=== PATIENT | male | born 1995 | race Caucasian/White ===

== ENCOUNTER 2016-05-19 21:25 | Emergency (ER) | payer MEDICAID ==
[2016-05-19 21:37] VITALS: BP 116/64
[2016-05-19] MEDS ORDERED: Ibuprofen 800 MG Tab PO ONE (21:45)
[2016-05-19] MEDS ORDERED: Amoxicillin 500 MG Cap PO ONE (22:33)
--- NOTE | 2016-05-19 22:38 | EDM.PDOC ---
ED HPI ENT - General Chief Complaint: ENT Problem Stated Complaint: cold [id number] Time Seen by Provider: 05/19/16 22:34 Source of Information: Reports: Patient History Limitations: Reports: No limitations - History of Present Illness INITIAL COMMENTS - FREE TEXT/NARRATIVE: c/o sore throat was supposed to have it out but missed it. - Related Data Allergies/ADRs: Allergies Allergy/AdvReac Type Severity Reaction Status Date / Time No Known Allergies Allergy Verified 05/19/16 21:37 Home Meds: Home Meds Acetaminophen [Tylenol] 650 mg PO Q4H PRN 05/19/16 [History] Past Medical History HEENT History: Reports: Impaired vision - Past Surgical History HEENT Surgical History: Reports: Eye surgery Musculoskeletal Surgical History: Reports: Other (see below) Other Musculoskeletal Surgeries/Procedures:: left wrist surgery and left ring finger Social & Family History - Family History Family Medical History: Noncontributory - Tobacco Use Smoking Status *Q: Current Every Day Smoker Years of Tobacco use: 2 Packs/Tins Daily: 0.7 Second Hand Smoke Exposure: Yes - Caffeine Use Caffeine Use: Reports: Soda - Recreational Drug Use Recreational Drug Use: No ED ROS ENT - Review of Systems Review Of Systems: ROS reveals no pertinent complaints other than HPI. ED EXAM, ENT - Physical Exam Exam: See Below Exam Limited By: No limitations General Appearance: alert, WD/WN, mild distress, other (sore throat) Ears: hearing grossly normal Mouth/Throat: Pharyngeal erythema, Tonsillar erythema, Tonsillar swelling Head: atraumatic Neck: non-tender, full range of motion Respiratory/Chest: no respiratory distress Cardiovascular: regular rate, rhythm GI/Abdominal: soft, non tender Neurological: alert, oriented, normal cognition, normal gait, no motor/sensory deficits Psychiatric: flat affect Skin: Warm, Dry Lymphatic: no adenopathy Course - Vital Signs Last Recorded V/S: Last Vital Signs Temp 37.4 C 05/19/16 22:29 Pulse 120 H 05/19/16 21:33 Resp 18 05/19/16 21:33 BP 116/64 05/19/16 21:33 Pulse Ox 97 05/19/16 21:33 - Orders/Labs/Meds Orders: Active Orders 24 hr Category Date Time Status CULTURE STREP A CONFIRMATION [RM] Stat Lab 05/19/16 21:43 Results STREP SCRN A RAPID W CULT CONF [RM] Stat Lab 05/19/16 21:43 Results Amoxicillin [Amoxil] Med 05/19/16 22:33 Once 500 mg PO ONETIME ONE Meds: Medications Discontinued Medications Generic Name Dose Route Start Last Admin Trade Name Kenton PRN Reason Stop Dose Admin Ibuprofen 800 mg 05/19/16 21:45 05/19/16 21:47 Motrin PO 05/19/16 21:46 800 mg ONETIME ONE Administration Departure - Departure Time of Disposition: 22:36 Disposition: Home, Self-Care 01 Condition: good Clinical Impression: Tonsillitis Pharyngitis Qualifiers: Pharyngitis/tonsillitis etiology: other specified organisms Qualified Code(s): J02.8 - Acute pharyngitis due to other specified organisms Instructions: Tonsillitis, Biif-aa-[id number] Forms: ED Department Discharge Additional Instructions: 1) avoid solid foods and scratchy foods 2) have popsicle, jello, juice, baby foods 3) follow up at clinic for reschedule tonsillectomy rx given: amoxil 250mg tid x 1 week - My Orders Last 24 Hours: My Active Orders 05/19/16 21:43 CULTURE STREP A CONFIRMATION [RM] Stat STREP SCRN A RAPID W CULT CONF [RM] Stat 05/19/16 22:33 Amoxicillin [Amoxil] 500 mg PO ONETIME ONE - Assessment/Plan Last 24 Hours: My Active Orders 05/19/16 21:43 CULTURE STREP A CONFIRMATION [RM] Stat STREP SCRN A RAPID W CULT CONF [RM] Stat 05/19/16 22:33 Amoxicillin [Amoxil] 500 mg PO ONETIME ONE
== END 2016-05-19 22:41 | disposition home or self-care (01) ==
LOC: DL.ED 21:25
DX: J03.90 Acute tonsillitis, unspecified (principal); F17.210 Nicotine dependence, cigarettes, uncomplicated
CPT/HCPCS: 87081; 87430; 99283; A9270

== ENCOUNTER 2016-08-15 23:17 | Emergency (ER) | payer MEDICAID ==
[2016-08-15 23:23] VITALS: BP 121/74
--- NOTE | 2016-08-15 23:42 | EDM.PDOC ---
ED HPI GENERAL MEDICAL PROBLEM - General Chief Complaint: ENT Problem Stated Complaint: THROAT PAIN Time Seen by Provider: 08/15/16 23:37 Source of Information: Reports: Patient History Limitations: Reports: No Limitations - History of Present Illness INITIAL COMMENTS - FREE TEXT/NARRATIVE: C/O severe sore throat for 2- 3 days, difficult to swallow. No known fever, tylenol and ibuprofen not helping Duration: Day(s): Quality: Reports: Ache, Burning, Same as Previous Episode, Stabbing Throat Pain Score (Numeric/FACES): 8 - Related Data Allergies Allergy/AdvReac Type Severity Reaction Status Date / Time No Known Allergies Allergy Verified 08/15/16 23:27 Home Meds: Home Meds . [No Known Home Meds] 08/15/16 [History] Past Medical History HEENT History: Reports: Impaired Vision - Past Surgical History HEENT Surgical History: Reports: Eye Surgery Musculoskeletal Surgical History: Reports: Other (See Below) Other Musculoskeletal Surgeries/Procedures:: wrist surgery Social & Family History - Family History Family Medical History: Noncontributory - Tobacco Use Smoking Status *Q: Current Every Day Smoker Years of Tobacco use: 2 Packs/Tins Daily: 0.7 Second Hand Smoke Exposure: Yes - Caffeine Use Caffeine Use: Reports: Soda - Recreational Drug Use Recreational Drug Use: No ED ROS ENT - Review of Systems Review Of Systems: See Below Constitutional: Reports: No Symptoms HEENT: Reports: Throat Pain, Vision Change (loss of vision to left eye), Other Respiratory: Reports: No Symptoms Cardiovascular: Reports: No Symptoms Endocrine: Reports: No Symptoms GI/Abdominal: Reports: No Symptoms : Reports: No Symptoms Musculoskeletal: Reports: No Symptoms Skin: Reports: No Symptoms Neurological: Reports: No Symptoms Psychiatric: Reports: No Symptoms ED EXAM, ENT - Physical Exam Exam: See Below Exam Limited By: No Limitations General Appearance: Alert, Mild Distress Eye Exam: Right Eye: Normal Inspection (left globe sunken , deviated laterally- chronic) Ears: Normal External Exam, Normal TMs Nose: Normal Inspection, Normal Mucousa Mouth/Throat: Muffled Voice, Pharyngeal Erythema, Tonsillar Erythema, Tonsillar Swelling, Uvular Edema. No: Tonsillar Exudates Head: Atraumatic, Normocephalic Neck: Lymphadenopathy (L), Lymphadenopathy (R) Respiratory/Chest: No Respiratory Distress, Lungs Clear, Normal Breath Sounds Cardiovascular: Normal Peripheral Pulses GI/Abdominal: Normal Bowel Sounds Back: Normal Inspection Extremities: Normal Inspection Neurological: Alert, Oriented Psychiatric: Normal Affect Skin: Warm, Dry, Intact Course - Vital Signs Last Recorded V/S: Last Vital Signs Temp 98.2 F 08/15/16 23:20 Pulse 70 08/15/16 23:20 Resp 18 08/15/16 23:20 BP 121/74 08/15/16 23:20 Pulse Ox 99 08/15/16 23:20 - Orders/Labs/Meds Orders: Active Orders 24 hr Category Date Time Status CULTURE STREP A CONFIRMATION [RM] Stat Lab 08/15/16 23:28 Results STREP SCRN A RAPID W CULT CONF [RM] Stat Lab 08/15/16 23:28 Results Departure - Departure Time of Disposition: 23:55 Disposition: Home, Self-Care 01 Condition: Good Clinical Impression: Pharyngitis Qualifiers: Pharyngitis/tonsillitis etiology: other specified organisms Qualified Code(s): J02.8 - Acute pharyngitis due to other specified organisms - Discharge Information Referrals: PCP,None [Primary Care Provider] - Forms: ED Department Discharge Additional Instructions: salt water gargle alternate tylenol and ibuprofen for discomfort increase fluids z pack follow up if not improving in one week or sypmptoms worsen - My Orders Last 24 Hours: My Active Orders 08/15/16 23:28 CULTURE STREP A CONFIRMATION [RM] Stat STREP SCRN A RAPID W CULT CONF [RM] Stat - Assessment/Plan Last 24 Hours: My Active Orders 08/15/16 23:28 CULTURE STREP A CONFIRMATION [RM] Stat STREP SCRN A RAPID W CULT CONF [RM] Stat
== END 2016-08-15 23:54 | disposition home or self-care (01) ==
LOC: DL.ED 23:17
DX: J02.8 Acute pharyngitis due to other specified organisms (principal); F17.210 Nicotine dependence, cigarettes, uncomplicated; Z98.890 Other specified postprocedural states
CPT/HCPCS: 87081; 87430; 99283

== ENCOUNTER 2017-03-30 01:57 | Emergency (ER) | payer SELFPAY ==
[2017-03-30 02:03] VITALS: BP 112/70
[2017-03-30] MEDS ORDERED: Tetracaine HCl/PF 0.5% 4 ML Bottle EYERT ONE (02:11)
--- NOTE | 2017-03-30 02:30 | EDM.PDOC ---
ED HPI GENERAL MEDICAL PROBLEM - General Chief Complaint: Eye Problems Stated Complaint: PIECE OF METAL IN R EYE [id number] Time Seen by Provider: 03/30/17 02:15 Source of Information: Reports: Patient History Limitations: Reports: No Limitations - History of Present Illness INITIAL COMMENTS - FREE TEXT/NARRATIVE: This 21 yo male patient reports to the ED with a metal particle in his right eye due to grinding on a trailer at about 2100 last night. The patient reports he has continued to have pain in his right eye since the incident. Onset Date: 03/29/17 Onset Time: 21:00 Duration: Constant Location: Reports: Face (right eye) Quality: Reports: Ache, Sharp Severity: Moderate Improves with: Reports: None Worsens with: Reports: None Associated Symptoms: Reports: No Other Symptoms Right Eye Pain Score (Numeric/FACES): 4 - Related Data Allergies Allergy/AdvReac Type Severity Reaction Status Date / Time No Known Allergies Allergy Verified 08/15/16 23:27 Home Meds: Home Meds . [No Known Home Meds] 08/15/16 [History] Past Medical History HEENT History: Reports: Impaired Vision Musculoskeletal History: Reports: Back Pain, Chronic - Past Surgical History HEENT Surgical History: Reports: Eye Surgery Musculoskeletal Surgical History: Reports: Other (See Below) Other Musculoskeletal Surgeries/Procedures:: wrist surgery Social & Family History - Family History Family Medical History: Noncontributory - Tobacco Use Smoking Status *Q: Current Every Day Smoker Years of Tobacco use: 3 Packs/Tins Daily: 1 Second Hand Smoke Exposure: Yes - Caffeine Use Caffeine Use: Reports: Coffee, Soda - Recreational Drug Use Recreational Drug Use: No ED ROS GENERAL - Review of Systems Review Of Systems: ROS reveals no pertinent complaints other than HPI. ED EXAM GENERAL W FULL EYE - Physical Exam Exam: See Below Exam Limited By: No Limitations General Appearance: Alert, WD/WN, Mild Distress Eye Exam: Right Eye: Corneal Abrasion, Foreign Body, PERRL, Left Eye: Other ( surgically absent due to previous injury) Eyelids: Bilateral: Normal Appearance Conjunctiva & Sclera: Right: Foreign Body Cornea Exam: Right: Corneal Abrasion Extraocular Movements: Right: Intact Pupils: Normal Accommodation Pupillary Size: Right: 3 mm Pupillary Reaction: Right: Brisk Ears: Normal External Exam, Normal Canal, Hearing Grossly Normal, Normal TMs Nose: Normal Inspection, Normal Mucosa, No Blood Throat/Mouth: Normal Inspection, Normal Lips, Normal Teeth, Normal Gums, Normal Oropharynx, Normal Voice, No Airway Compromise Head: Atraumatic, Normocephalic Neck: Normal Inspection, Supple, Non-Tender, Full Range of Motion Respiratory/Chest: No Respiratory Distress, Lungs Clear, Normal Breath Sounds, No Accessory Muscle Use, Chest Non-Tender Cardiovascular: Normal Peripheral Pulses, Regular Rate, Rhythm, No Edema, No Gallop, No JVD, No Murmur, No Rub GI/Abdominal: Normal Bowel Sounds, Soft, Non-Tender, No Organomegaly, No Distention, No Abnormal Bruit, No Mass (Male) Exam: Deferred Rectal (Males) Exam: Deferred Back Exam: Normal Inspection, Full Range of Motion, NT Extremities: Normal Inspection, Normal Range of Motion, Non-Tender, Normal Capillary Refill, No Pedal Edema Neurological: Alert, Oriented, CN II-XII Intact, Normal Cognition, Normal Gait, Normal Reflexes, No Motor/Sensory Deficits Psychiatric: Normal Affect, Normal Mood Skin Exam: Warm, Dry, Intact, Normal Color, No Rash Lymphatic: No Adenopathy ED EYE w/ Add Procedure - Eye Procedure Alcaine Drops Administered: Yes Eye FB Removal: Removal w/ Cotton Swab Antibiotic Oinment/Drps Admin: Right Eye Progress: Foreign material removed easily with a cotton swab. The patient does have a corneal abrasion in addition to the foreign material removed. Course - Vital Signs Last Recorded V/S: Last Vital Signs Temp 36.6 C 03/30/17 02:02 Pulse 84 03/30/17 02:02 Resp 17 03/30/17 02:02 BP 112/70 03/30/17 02:02 Pulse Ox 99 03/30/17 02:02 - Orders/Labs/Meds Orders: Active Orders 24 hr Category Date Time Status Bacitracin/Polymyxin B [Polysporin Ophth Oint] Med 03/30/17 09:00 Ordered 1 gm EYERT TID Meds: Medications Discontinued Medications Generic Name Dose Route Start Last Admin Trade Name Freq PRN Reason Stop Dose Admin Tetracaine HCl 1 ml 03/30/17 02:11 03/30/17 02:15 Tetracaine 0.5% Steri-Unit Erlinda EYERT 03/30/17 02:12 1 ml ASDIRECTED ONE Administration Departure - Departure Time of Disposition: 02:29 Disposition: Home, Self-Care 01 Condition: Fair Clinical Impression: Corneal abrasion Qualifiers: Encounter type: initial encounter Laterality: right Qualified Code(s): S05.01XA - Injury of conjunctiva and corneal abrasion without foreign body, right eye, initial encounter Foreign body of right eye Qualifiers: Encounter type: initial encounter Qualified Code(s): T15.91XA - Foreign body on external eye, part unspecified, right eye, initial encounter - Discharge Information Instructions: Eye Foreign Body, Iush-sk-Lbeb, Corneal Abrasion, Biph-kt-Flea Care Plan Goals: The patient was advised of the examination results during the visit. The foreign material was removed without incident during the visit. The patient was discharged with antibiotic ointment to apply a 1/4 inch ribbon to the lower eyelid 4 times per day for 7 days. If the patient has any additional symptoms or further concerns, the patient should follow-up with his primary care facility or return to the ED. - Assessment/Plan Last 24 Hours: My Active Orders 03/30/17 09:00 Bacitracin/Polymyxin B [Polysporin Ophth Oint] 1 gm EYERT TID
[2017-03-30] MEDS ORDERED: Bacitracin/Polymyxin B Ophth Oint 3.5 GM Tube ONE (02:39)
[2017-03-30] MEDS ORDERED: Bacitracin/Polymyxin B Ophth Oint 3.5 GM Tube EYERT SCH (09:00)
== END 2017-03-30 02:45 | disposition home or self-care (01) ==
LOC: DL.ED 01:57
DX: T15.01XA Foreign body in cornea, right eye, initial encounter (principal); F17.210 Nicotine dependence, cigarettes, uncomplicated; X58.XXXA Exposure to other specified factors, initial encounter
CPT/HCPCS: 65205; 99282; 99283; A9270

== ENCOUNTER 2017-04-24 01:44 | Emergency (ER) | payer SELFPAY ==
[2017-04-24] MEDS ORDERED: Lidocaine 2% Viscous Solution 15 ML Cup PO ONE ×2 (01:45)
[2017-04-24] MEDS ORDERED: Clindamycin HCl 150 MG Cap PO ONE (01:45)
[2017-04-24 02:03] VITALS: BP 109/73
--- NOTE | 2017-04-24 02:48 | EDM.PDOC ---
ED HPI GENERAL MEDICAL PROBLEM - General Chief Complaint: ENT Problem Stated Complaint: BUMPS ON TONGUE, TOUGH TO EAT [id number] Time Seen by Provider: 04/24/17 01:50 Source of Information: Reports: Patient History Limitations: Reports: No Limitations - History of Present Illness INITIAL COMMENTS - FREE TEXT/NARRATIVE: ED with c/o sorethroat and cold for one week, tonight tongue sore and hurts to eat. - Related Data Allergies Allergy/AdvReac Type Severity Reaction Status Date / Time No Known Allergies Allergy Verified 08/15/16 23:27 Home Meds: Home Meds . [No Known Home Meds] 08/15/16 [History] Past Medical History HEENT History: Reports: Impaired Vision Musculoskeletal History: Reports: Back Pain, Chronic - Past Surgical History HEENT Surgical History: Reports: Eye Surgery Musculoskeletal Surgical History: Reports: Other (See Below) Other Musculoskeletal Surgeries/Procedures:: wrist surgery Social & Family History - Family History Family Medical History: Noncontributory - Tobacco Use Smoking Status *Q: Current Every Day Smoker Years of Tobacco use: 6 Packs/Tins Daily: 0.5 Second Hand Smoke Exposure: Yes - Caffeine Use Caffeine Use: Reports: Coffee, Soda - Recreational Drug Use Recreational Drug Use: No ED ROS ENT - Review of Systems Review Of Systems: See Below Constitutional: Reports: No Symptoms HEENT: Reports: Rhinitis, Throat Pain Respiratory: Reports: No Symptoms Cardiovascular: Reports: No Symptoms GI/Abdominal: Reports: No Symptoms Skin: Reports: No Symptoms ED EXAM, ENT - Physical Exam Exam: See Below Exam Limited By: Other General Appearance: No Apparent Distress, Mild Distress Eye Exam: Right Eye: EOMI (blind left eye) Ears: Normal External Exam, Normal TMs Nose: Nasal Discharge (clear) Mouth/Throat: Pharyngeal Erythema, Tonsillar Erythema, Tonsillar Swelling, Other (tongue beefy red few vesicular papules scattered) Head: Atraumatic, Normocephalic Neck: Normal Inspection, Supple, Full Range of Motion, Lymphadenopathy (L), Lymphadenopathy (R) Respiratory/Chest: No Respiratory Distress, Lungs Clear, Normal Breath Sounds Cardiovascular: Normal Peripheral Pulses, Regular Rate, Rhythm GI/Abdominal: Normal Bowel Sounds, Soft Extremities: Normal Inspection Neurological: Alert, Oriented, Normal Cognition Course - Vital Signs Last Recorded V/S: Last Vital Signs Temp 98.1 F 04/24/17 01:45 Pulse 96 04/24/17 01:45 Resp 18 04/24/17 01:45 BP 109/73 04/24/17 01:45 Pulse Ox 100 04/24/17 01:45 - Orders/Labs/Meds Orders: Active Orders 24 hr Category Date Time Status CULTURE STREP A CONFIRMATION [RM] Stat Lab 04/24/17 01:55 Results STREP SCRN A RAPID W CULT CONF [RM] Stat Lab 04/24/17 01:55 Results Meds: Medications Discontinued Medications Generic Name Dose Route Start Last Admin Trade Name Kenton PRN Reason Stop Dose Admin Amoxicillin 1,000 mg 04/24/17 02:44 04/24/17 02:49 Amoxil PO 04/24/17 02:45 1,000 mg ONETIME ONE Administration Lidocaine HCl Confirm 04/24/17 02:53 Xylocaine 2% Viscous Administered 04/24/17 02:54 Dose 15 ml .ROUTE .STK-MED ONE Departure - Departure Time of Disposition: 02:45 Disposition: Home, Self-Care 01 Condition: Good Clinical Impression: Tonsillitis - Discharge Information Referrals: PCP,None [Primary Care Provider] - Forms: ED Department Discharge Additional Instructions: good oral hygeine, moth rinse 14 strength mouthwash amoxicillin 875mg one twice daily for one week, thin layer viscous lidocaine to tongue prior to meals chloraseptic spray as needed. - My Orders Last 24 Hours: My Active Orders 04/24/17 01:55 CULTURE STREP A CONFIRMATION [RM] Stat STREP SCRN A RAPID W CULT CONF [RM] Stat - Assessment/Plan Last 24 Hours: My Active Orders 04/24/17 01:55 CULTURE STREP A CONFIRMATION [RM] Stat STREP SCRN A RAPID W CULT CONF [RM] Stat
[2017-04-24] MEDS: Amoxicillin 500 MG Cap PO ONE (02:49)
[2017-04-24] MEDS: Lidocaine 2% Viscous Solution 15 ML Cup ONE (04:54)
== END 2017-04-24 03:05 | disposition home or self-care (01) ==
LOC: DL.ED 01:44
DX: J03.90 Acute tonsillitis, unspecified (principal); F17.210 Nicotine dependence, cigarettes, uncomplicated
CPT/HCPCS: 87081; 87430; 99283; A9270

== ENCOUNTER 2017-06-11 23:54 | Emergency (ER) | payer MEDICAID ==
[2017-06-11] MEDS ORDERED: Acetaminophen/HYDROcodone 325-10 MG Tab PO ONE (23:55)
[2017-06-12] MEDS ORDERED: Silver Sulfadiazine 1% Crm 50 GM Tube TOP ONE (00:03)
[2017-06-12 00:11] VITALS: BP 118/75
--- NOTE | 2017-06-12 00:46 | EDM.PDOC ---
ED HPI GENERAL MEDICAL PROBLEM - General Chief Complaint: Burn Stated Complaint: BURNED HAND [id number] Time Seen by Provider: 06/12/17 00:10 Source of Information: Reports: Patient - History of Present Illness INITIAL COMMENTS - FREE TEXT/NARRATIVE: pouring grease out of cormier and spilled grease on right hand. burn to thumb and hand Left Hand Pain Score (Numeric/FACES): 7 - Related Data Allergies Allergy/AdvReac Type Severity Reaction Status Date / Time No Known Allergies Allergy Verified 06/12/17 00:11 Home Meds: Home Meds . 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 Musculoskeletal Surgical History: Reports: Other (See Below) Other Musculoskeletal Surgeries/Procedures:: wrist surgery Social & Family History - Family History Family Medical History: Noncontributory - Tobacco Use Smoking Status *Q: Current Every Day Smoker Years of Tobacco use: 3 Packs/Tins Daily: 0.5 Second Hand Smoke Exposure: Yes - Caffeine Use Caffeine Use: Reports: Energy Drinks, Soda - Recreational Drug Use Recreational Drug Use: No ED ROS GENERAL - Review of Systems Review Of Systems: ROS reveals no pertinent complaints other than HPI. ED EXAM, BURN/SMOKE INHALATION - Physical Exam Exam: See Below Exam Limited By: No Limitations General Appearance: Alert, Mild Distress Ears (Abbreviated): Normal External Exam Mouth/Throat: No Symptoms Reported. No: Hoarse Voice Head: No Symptoms Neck: No Symptoms Respiratory: No Respiratory Distress Cardiovascular: Normal Peripheral Pulses, Regular Rate, Rhythm GI/Abdominal: Normal Bowel Sounds Neurological: Alert, Oriented Skin Exam: Warm, Other (deep first degree mid index finger on right, to thenar and medial thumb. small 3mm circular sluffed blister. in web. ) Course - Vital Signs Last Recorded V/S: Last Vital Signs Temp 98 F 06/12/17 00:02 Pulse 77 06/12/17 00:02 Resp 16 06/12/17 00:02 BP 118/75 06/12/17 00:02 Pulse Ox 100 06/12/17 00:02 - Orders/Labs/Meds Meds: Medications Discontinued Medications Generic Name Dose Route Start Last Admin Trade Name Kenton PRN Reason Stop Dose Admin Hydrocodone Bitart/Acetaminophen Confirm 06/12/17 00:49 06/12/17 00:58 [place] 325-10 Mg Administered 06/12/17 00:50 Not Given Dose 2 tab .ROUTE .STK-MED ONE Silver Sulfadiazine 50 gm 06/12/17 00:03 06/12/17 00:30 Silvadene 1% Cream 50 Gm TOP 06/12/17 00:04 1 unit ONETIME ONE Administration Departure - Departure Time of Disposition: 00:43 Disposition: Home, Self-Care 01 Condition: Good Clinical Impression: Burn - Discharge Information Instructions: Burn Care, Adult, [id number] Forms: ED Department Discharge Additional Instructions: Silvadene to right hand, dress twice daily until healed Hydrocodone 10/325 one every 6 hours tonight as needed for severe pain alternate tylenol 650 and ibuprofen tomorrow for discomfort keep area clean follow up if any increased redness or sign of infection
[2017-06-12] MEDS ORDERED: Acetaminophen/HYDROcodone 325-10 MG Tab ONE (00:49)
== END 2017-06-12 00:57 | disposition home or self-care (01) ==
LOC: DL.ED 23:54
DX: T23.201A Burn of second degree of right hand, unspecified site, initial encounter (principal); T23.111A Burn of first degree of right thumb (nail), initial encounter; F17.210 Nicotine dependence, cigarettes, uncomplicated
CPT/HCPCS: 16020; 99283; A9270

== ENCOUNTER 2017-06-23 23:57 | Emergency (ER) | payer MEDICAID ==
[2017-06-24] MEDS ORDERED: Sodium Chloride 0.9% 10 ML Syringe FLUSH PRN (00:10)
[2017-06-24] MEDS ORDERED: Ondansetron 4 MG/2 ML SDV IV ONE (00:12)
[2017-06-24] MEDS ORDERED: Loperamide 2 MG Cap PO ONE (00:12)
[2017-06-24] MEDS ORDERED: Ketorolac 30 MG/ML SDV IVPUSH ONE (00:13)
[2017-06-24] MEDS ORDERED: Acetaminophen 325 MG Tab PO ONE (00:13)
[2017-06-24] MEDS: Sodium Chloride 0.9% 1,000 ML IV ONE ×2 (00:15→00:51)
[2017-06-24 00:44] LABS: CHLORIDE,CL 101 mmol/L (101-111); SODIUM,NA 135 mmol/L (135-145)
[2017-06-24] MEDS ORDERED: Sodium Chloride 0.9% 1,000 ML IV ONE (00:47)
[2017-06-24 01:32] VITALS: BP 102/50
--- NOTE | 2017-06-24 07:36 | ER ---
SUBJECTIVE: The patient is a 22-year-old, normally healthy male, who comes in with some midepigastric abdominal cramping, began yesterday and some nonbloody nausea and vomiting, also nonbloody diarrhea, happened for several days now. He states his girlfriend's sister has been staying with him, and she has had bronchitis and has been ill. He states he feels he has had fevers at times. He is not sure as he did not check it. Some chills. Occasional cough. No bites, stings, or rashes. No falls or trauma. Mild headache. No ear pain or sinus pain. Had a sore throat several days ago but nothing now. Otherwise, at baseline. He has been trying to eat and drink and has a decreased appetite. PAST MEDICAL HISTORY: Significant for impaired vision. 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 He has chronic back pain. He had wrist surgery. Otherwise, he has been healthy. SOCIAL HISTORY: He has been smoking cigarettes for the last 3 years. He does drink soda. He has not used alcohol for over 3 months. He does not use any recreational drugs. CURRENT MEDICATIONS: Denied. ALLERGIES: Denied. REVIEW OF SYSTEMS: Subjective fevers, chills, nonbloody nausea, vomiting, and diarrhea. No chest pain. No shortness of breath. Occasional cough. Sore throat 2 or 3 days ago, nothing now. No ear pain, sinus pain, or changes in vision recently. No bowel or bladder changes. He states he is urinating fine. No hematuria. Please see HPI. OBJECTIVE: Vital Signs: His temperature is 38.0 C, pulse is 120, blood pressure is 146/112, respirations 18, and oxygen is 98% on room air. General: Young male. HEENT: Normocephalic and atraumatic. 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 It is atrophic. Otherwise, conjunctiva is clear. HEENT exam is unremarkable. Mucous membrane is mildly dry. Neck: Full range of motion. No lymphadenopathy. No nuchal rigidity. Chest: Clear. Cardiovascular: RRR. Abdomen: Benign and soft. Back: No CVAT. Extremities: Unremarkable. He appears worn and tired. LAB/STUDIES: White count is mildly elevated, he has no anemia. Platelets are normal. Differential shows mildly elevated PMNs of 81.5. Sodium is normal. Potassium is barely low at 3.4. The remainder of electrolytes are quite unremarkable. Lactic acid is normal at 0.8. Total bilirubin is 1.1. Liver function tests and amylase are unremarkable. Chest x-ray is also unremarkable. His blood was sent for culture as well. EMERGENCY ROOM COURSE: He was given 2 L IV fluids. He was given Zofran IV. He was given Toradol IV and Tylenol by mouth. He was also given Imodium by mouth. He held everything orally by mouth and has done well and he felt much improved. I did discuss his labs and x-rays with him and advised him that it appears he has a viral process. ASSESSMENT: 1. Viral syndrome. 2. Nonbloody nausea, vomiting, and diarrhea. 3. Mild dehydration/volume depletion, intravenous fluids given. PLAN: Home, rest, plenty of sleep, symptomatic treatment, and Tylenol and ibuprofen [id number] per package recommendations. Keep aggressively hydrated. Love diet as tolerated. Use [id number] medications for diarrhea, such as Imodium. Follow up with PCP next week as needed. [facility] /[id number]
== END 2017-06-24 01:32 | disposition home or self-care (01) ==
LOC: DL.ED 23:57
DX: E86.0 Dehydration (principal); B34.9 Viral infection, unspecified; F17.210 Nicotine dependence, cigarettes, uncomplicated
CPT/HCPCS: 36415; 71046; 80053; 82150; 83605; 85025; 87040; 96361; 96374; 96375; 99284; A9270-GY; J1885; J2405; J7030; J7050

== ENCOUNTER 2018-07-01 23:46 | Emergency (ER) | payer MEDICAID ==
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
[2018-07-02 00:09] VITALS: BP 130/85
== END 2018-07-02 01:25 | disposition home or self-care (01) ==
LOC: DL.ED 23:46
DX: S60.221A Contusion of right hand, initial encounter (principal); W31.9XXA Contact with unspecified machinery, initial encounter
CPT/HCPCS: 73130-RT; 99283-25

== ENCOUNTER 2019-01-23 21:23 | Emergency (ER) | payer MEDICAID ==
[2019-01-23] MEDS ORDERED: Acetaminophen/HYDROcodone 325-10 MG Tab PO ONE (21:24)
[2019-01-23 21:46] VITALS: BP 109/75; PULSE 79
--- NOTE | 2019-01-23 21:47 | EDM.PDOC ---
ED HPI GENERAL MEDICAL PROBLEM - General Chief Complaint: Upper Extremity Injury/Pain Stated Complaint: RIGHT SHOULDER. Time Seen by Provider: 01/23/19 21:45 Source of Information: Reports: Patient History Limitations: Reports: No Limitations - History of Present Illness INITIAL COMMENTS - FREE TEXT/NARRATIVE: was loading dog food bags into truck this am and pulled something. Right Shoulder Pain Score (Numeric/FACES): 4 - Related Data Allergies Allergy/AdvReac Type Severity Reaction Status Date / Time No Known Allergies Allergy Verified 01/23/19 21:39 Home Meds: Home Meds . 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 Musculoskeletal Surgical History: Reports: Other (See Below) Other Musculoskeletal Surgeries/Procedures:: wrist surgery Social & Family History - Family History Family Medical History: Noncontributory - Tobacco Use Smoking Status *Q: Current Every Day Smoker Years of Tobacco use: 4 Packs/Tins Daily: 0.5 Used Tobacco, but Quit: No Second Hand Smoke Exposure: Yes - Caffeine Use Caffeine Use: Reports: Coffee, Energy Drinks, Soda, Tea - Recreational Drug Use Recreational Drug Use: No Review of Systems - Review of Systems Review Of Systems: Comprehensive ROS is negative, except as noted in HPI. ED EXAM, GENERAL - Physical Exam Exam: See Below Exam Limited By: No Limitations General Appearance: Alert, WD/WN, Mild Distress, Other (discomfort) Ears: Hearing Grossly Normal Throat/Mouth: Normal Voice, No Airway Compromise Head: Atraumatic Neck: Non-Tender, Full Range of Motion Respiratory/Chest: No Respiratory Distress Cardiovascular: Regular Rate, Rhythm GI/Abdominal: Soft, Non-Tender Extremities: Other (right shoulder tender rotator cuff region on R/P, NV wnl) Neurological: Alert, Oriented, Normal Cognition, Normal Gait, No Motor/Sensory Deficits Psychiatric: Flat Affect Skin Exam: Warm, Dry, Normal Color Lymphatic: No Adenopathy Course - Vital Signs Last Recorded V/S: Last Vital Signs Temp 36.9 C 01/23/19 21:45 Pulse 79 01/23/19 21:45 Resp 18 01/23/19 21:45 BP 109/75 01/23/19 21:45 Pulse Ox 100 01/23/19 21:45 - Re-Assessments/Exams Free Text/Narrative Re-Assessment/Exam: 01/23/19 22:35 results discussed with pt Departure - Departure Time of Disposition: 22:35 Disposition: Home, Self-Care 01 Condition: Good Clinical Impression: Rotator cuff (capsule) sprain Qualifiers: Encounter type: initial encounter Laterality: right Qualified Code(s): S43.421A - Sprain of right rotator cuff capsule, initial encounter - Discharge Information Forms: ED Department Discharge Additional Instructions: 1) avoid use of right shoulder next 4 days 2) see clinic for MRI SCAN if not significantly better by Saturday rx chaka paz 10 x 1
[2019-01-23] MEDS ORDERED: Acetaminophen/HYDROcodone 325-10 MG Tab ONE (22:45)
== END 2019-01-23 22:42 | disposition home or self-care (01) ==
LOC: DL.ED 21:23
DX: S43.421A Sprain of right rotator cuff capsule, initial encounter (principal); F17.210 Nicotine dependence, cigarettes, uncomplicated; X50.0XXA Overexertion from strenuous movement or load, initial encounter
CPT/HCPCS: 73020; 99283; A9270

== ENCOUNTER 2019-03-23 03:25 | Emergency (ER) | payer MEDICAID, OTHER ==
[2019-03-23 03:35] VITALS: BP 182/143; PULSE 72
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
[2019-03-23] MEDS ORDERED: Ibuprofen 600 MG Tab PO ONE (03:59)
== END 2019-03-23 04:12 | disposition home or self-care (01) ==
LOC: DL.ED 03:25
DX: S60.211A Contusion of right wrist, initial encounter (principal); F17.210 Nicotine dependence, cigarettes, uncomplicated; W22.8XXA Striking against or struck by other objects, initial encounter
CPT/HCPCS: 73110; 99283; A9270

== ENCOUNTER 2019-08-20 01:53 | Emergency (ER) | payer SELFPAY ==
[2019-08-20 02:04] VITALS: BP 173/62; PULSE 79
--- NOTE | 2019-08-20 02:16 | EDM.PDOC ---
ED HPI GENERAL MEDICAL PROBLEM - General Chief Complaint: Upper Extremity Injury/Pain Stated Complaint: SOMETHING OUT OF PLACE IN THROAT Time Seen by Provider: 08/20/19 02:05 Source of Information: Reports: Patient History Limitations: Reports: No Limitations - History of Present Illness INITIAL COMMENTS - FREE TEXT/NARRATIVE: This 24 yo male patient reports to the ED with right clavicle pain. The patient reports his pain started this evening, but has gotten worse. The patient has not taken anything for his symptoms. The patient reports that he has noticed that something sticks out (near to proximal end of his clavicle) when he moves. The patient denies any recent injuries to the area. 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 The patient has not taken anything for temporary symptom relief. Onset: Today Duration: Constant Location: Reports: Chest (right proximal clavicle) Quality: Reports: Ache, Dull Severity: Mild Improves with: Reports: Rest Worsens with: Reports: Movement Context: Reports: Activity Associated Symptoms: Reports: No Other Symptoms Right Clavicle Pain Score (Numeric/FACES): 9 - Related Data Allergies Allergy/AdvReac Type Severity Reaction Status Date / Time No Known Allergies Allergy Verified 08/20/19 02:01 Home Meds: Home Meds . 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 Musculoskeletal Surgical History: Reports: Other (See Below) Other Musculoskeletal Surgeries/Procedures:: wrist surgery Social & Family History - Family History Family Medical History: Noncontributory - Tobacco Use Smoking Status *Q: Current Every Day Smoker Years of Tobacco use: 5 Packs/Tins Daily: 0.5 - Caffeine Use Caffeine Use: Reports: Energy Drinks, Soda - Recreational Drug Use Recreational Drug Use: No Review of Systems - Review of Systems Review Of Systems: Comprehensive ROS is negative, except as noted in HPI. ED EXAM, GENERAL - Physical Exam Exam: See Below Exam Limited By: No Limitations General Appearance: Alert, WD/WN, Mild Distress, Thin Ears: Normal External Exam, Normal Canal, Hearing Grossly Normal, Normal TMs Nose: Normal Inspection, Normal Mucosa, No Blood Throat/Mouth: Normal Inspection, Normal Lips, Normal Teeth, Normal Gums, Normal Oropharynx, Normal Voice, No Airway Compromise Head: Atraumatic, Normocephalic Neck: Normal Inspection, Supple, Non-Tender, Full Range of Motion Respiratory/Chest: No Respiratory Distress, Lungs Clear, Normal Breath Sounds, No Accessory Muscle Use, Chest Non-Tender Cardiovascular: Normal Peripheral Pulses, Regular Rate, Rhythm, No Edema, No Gallop, No JVD, No Murmur, No Rub GI/Abdominal: Normal Bowel Sounds (Male) Exam: Deferred Rectal (Males) Exam: Deferred Back Exam: Normal Inspection, Full Range of Motion, NT Extremities: Arm Pain (right proximal clavicle discomfort with movement) Neurological: Alert, Oriented, CN II-XII Intact, Normal Cognition, Normal Gait, Normal Reflexes, No Motor/Sensory Deficits Psychiatric: Normal Affect, Normal Mood Skin Exam: Warm, Dry, Intact, Normal Color, No Rash Lymphatic: No Adenopathy Course - Vital Signs Last Recorded V/S: Last Vital Signs Temp 36.9 C 08/20/19 02:01 Pulse 79 08/20/19 02:01 Resp 16 08/20/19 02:01 BP 173/62 H 08/20/19 02:01 Pulse Ox 100 08/20/19 02:01 - Orders/Labs/Meds Orders: Active Orders 24 hr Category Date Time Status Clavicle Rt [CR] Urgent Exams 08/20/19 02:07 Ordered Departure - Departure Time of Disposition: 03:15 Disposition: Home, Self-Care 01 Condition: Fair Clinical Impression: Sternoclavicular joint strain Qualifiers: Encounter type: initial encounter Qualified Code(s): S29.011A - Strain of muscle and tendon of front wall of thorax, initial encounter - Discharge Information *PRESCRIPTION DRUG MONITORING PROGRAM REVIEWED*: Not Applicable *COPY OF PRESCRIPTION DRUG MONITORING REPORT IN PATIENT LINDA: Not Applicable Forms: ED Department Discharge Care Plan Goals: The patient was advised of the examination and x-ray results during the visit. The patient was placed in a sling for support. The patient should wear the sling for the next 3 week. If the patient continues to have symptoms or additional concerns, the patient should follow-up with his primary care facility for further evaluation and management. If the patient has any additional symptoms or concerns, the patient should either return to the emergency department or visit his primary care facility. Sepsis Event Note (ED) - Evaluation Sepsis Screening Result: No Definite Risk - Focused Exam Vital Signs: Vital Signs Temp Pulse Resp BP Pulse Ox 08/20/19 02:01 36.9 C 79 16 173/62 H 100 - My Orders Last 24 Hours: My Active Orders 08/20/19 02:07 Clavicle Rt [CR] Urgent - Assessment/Plan Last 24 Hours: My Active Orders 08/20/19 02:07 Clavicle Rt [CR] Urgent
--- NOTE | 2019-08-20 03:44 | CR ---
PROCEDURE INFORMATION: Exam: XR Sternoclavicular Joints Exam date and time: 08/20/2019 2:53 AM Age: 24 years old Clinical indication: Sternal or substernal pain and other: SC joint pain; Additional info: Lump right SC joint, pain TECHNIQUE: Imaging protocol: XR sternoclavicular joints. Views: 3 views. COMPARISON: 1. CR Chest 1V Frontal 02/18/2018 1:44 AM 2. CR - Shoulder 1V Rt 01/23/2019 9:55:41 PM FINDINGS: Bones/joints: No acute fractures. No dislocation. The medial right clavicular head is slightly inferiorly positioned compared to the medial left clavicular head on frontal view, nonspecific and unchanged compared to prior chest x-ray from 02/18/2018. Soft tissues: Normal. IMPRESSION: No acute findings.
--- NOTE | 2019-08-20 03:46 | CR ---
PROCEDURE INFORMATION: Exam: XR Right Clavicle, Complete Exam date and time: 08/20/2019 2:53 AM Age: 24 years old Clinical indication: Other: SC joint pain; Additional info: Right clavicle pain TECHNIQUE: Imaging protocol: XR Right clavicle complete. Any number of views. COMPARISON: 1. CR Chest 1V Frontal 02/18/2018 1:44 AM 2. CR - Shoulder 1V Rt 01/23/2019 9:55:41 PM FINDINGS: Bones/joints: Normal. No acute fracture. Soft tissues: Normal. IMPRESSION: No acute findings.
== END 2019-08-20 03:22 | disposition home or self-care (01) ==
LOC: DL.ED 01:53
DX: S43.61XA Sprain of right sternoclavicular joint, initial encounter (principal); S29.011A Strain of muscle and tendon of front wall of thorax, initial encounter; F17.210 Nicotine dependence, cigarettes, uncomplicated; X58.XXXA Exposure to other specified factors, initial encounter
CPT/HCPCS: 71130; 73000-RT; 99283-25

== ENCOUNTER 2020-01-21 21:54 | Emergency (ER) | payer OTHER ==
[2020-01-21] MEDS ORDERED: Acetaminophen/HYDROcodone 325-10 MG Tab PO ONE (21:55)
[2020-01-21 22:06] VITALS: BP 127/96; PULSE 82
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
[2020-01-21] MEDS ORDERED: Acetaminophen/HYDROcodone 325-10 MG Tab ONE (23:00)
== END 2020-01-21 23:05 | disposition home or self-care (01) ==
LOC: DL.ED 21:54
DX: S00.83XA Contusion of other part of head, initial encounter (principal); F17.210 Nicotine dependence, cigarettes, uncomplicated; W22.8XXA Striking against or struck by other objects, initial encounter
CPT/HCPCS: 70486; 99283; A9270

== ENCOUNTER 2020-04-02 20:06 | Emergency (ER) | payer MEDICAID ==
--- NOTE | 2020-04-02 20:27 | EDM.PDOC ---
ED HPI GENERAL MEDICAL PROBLEM - General Stated Complaint: RIGHT EAR FROSTBITE Time Seen by Provider: 04/02/20 20:15 Source of Information: Reports: Patient, RN History Limitations: Reports: No Limitations - History of Present Illness INITIAL COMMENTS - FREE TEXT/NARRATIVE: ED with c/o french bite to right ear this am while feeding cows. Ear feels warm and swollen tonight. Has not tried anything for discomfort. Right Ear Pain Score (Numeric/FACES): 5 - Related Data Allergies Allergy/AdvReac Type Severity Reaction Status Date / Time No Known Allergies Allergy Verified 04/02/20 20:14 Home Meds: Home Meds . 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 Musculoskeletal Surgical History: Reports: Other (See Below) Other Musculoskeletal Surgeries/Procedures:: wrist surgery Social & Family History - Family History Family Medical History: No Pertinent Family History - Tobacco Use Tobacco Use Status *Q: Current Every Day Tobacco User Years of Tobacco use: 5 Packs/Tins Daily: 1 Second Hand Smoke Exposure: Yes - Caffeine Use Caffeine Use: Reports: Energy Drinks, Soda - Recreational Drug Use Recreational Drug Use: No ED ROS GENERAL - Review of Systems Review Of Systems: Comprehensive ROS is negative, except as noted in HPI. ED EXAM, SKIN/RASH Exam: See Below Exam Limited By: No Limitations General Appearance: Alert, Anxious, Thin Eye Exam: Right Eye: Normal Inspection Ears: Other (right upper ear, mild erythema, minimal swelling noted. Warm to touch. Skin intact, no blistering. left WNL) Nose: Normal Inspection Throat/Mouth: Normal Inspection Head: Atraumatic, Normocephalic Neck: Full Range of Motion Respiratory/Chest: No Respiratory Distress, Lungs Clear, Normal Breath Sounds Cardiovascular: Regular Rate, Rhythm Extremities: Normal Inspection Neurological: Alert, Oriented, Normal Cognition Psychiatric: Normal Affect Skin: Warm, Dry, Intact, Erythema (right upper ear) Course - Vital Signs Last Recorded V/S: Last Vital Signs Temp 97.9 F 04/02/20 20:10 Pulse 69 04/02/20 20:10 Resp 18 04/02/20 20:10 BP 128/80 04/02/20 20:10 Pulse Ox 99 04/02/20 20:10 Departure - Departure Time of Disposition: 20:23 Disposition: Home, Self-Care 01 Condition: Good Clinical Impression: Superficial frostbite of right ear, initial encounter - Discharge Information *PRESCRIPTION DRUG MONITORING PROGRAM REVIEWED*: No *COPY OF PRESCRIPTION DRUG MONITORING REPORT IN PATIENT LINDA: No Instructions: Frostbite, [id number] Forms: ED Department Discharge Additional Instructions: thin layer antibiotic ointment to right ear keep ear covered don't rub ear tylenol 650mg every 4 hours as needed for discomfort clinic recheck as needed Sepsis Event Note (ED) - Evaluation Sepsis Screening Result: No Definite Risk - Focused Exam Vital Signs: Vital Signs Temp Pulse Resp BP Pulse Ox 04/02/20 20:10 97.9 F 69 18 128/80 99
== END 2020-04-02 20:29 | disposition home or self-care (01) ==
LOC: DL.ED 20:06
CPT/HCPCS: 99282; 99283

== ENCOUNTER 2022-08-06 22:24 | Emergency (ER) | payer MEDICAID ==
[2022-08-06] MEDS ORDERED: Diphtheria,Pertussis(Acell),Tetanus Vaccine 0.5 ML Syringe IM ONE (23:59)
[2022-08-06] MEDS ORDERED: Bacitracin Oint 1 GM U/D Packet TOP ONE (23:59)
[2022-08-07] MEDS ORDERED: Lidocaine 2% with EPINEPHrine 1:200,000 20 ML SDV INJECT ONE (00:16)
[2022-08-07 01:45] VITALS: BP 123/78; PULSE 77
== END 2022-08-07 01:41 | disposition home or self-care (01) ==
LOC: DL.ED 22:24
DX: S61.217A Laceration without foreign body of left little finger without damage to nail, initial encounter (principal); Z87.891 Personal history of nicotine dependence; Z23 Encounter for immunization; W29.3XXA Contact with powered garden and outdoor hand tools and machinery, initial encounter
CPT/HCPCS: 12042; 73140; 90471; 90715; 99283; A9270; 12002; 99282; J3490

== ENCOUNTER 2025-01-12 21:35 | Emergency (ER) | payer MEDICAID ==
[2025-01-12 22:11] LABS: BASOPHILS PERCENT AUTO 0.3 % (0.0-1.0); EOSINOPHILS PERCENT AUTO 1.7 % (1.0-3.0); LYMPHOCYTES PERCENT AUTO 23.6 % (20.5-50.1); MONOCYTES PERCENT AUTO 9.0 % (2-8); NEUTROPHILS PERCENT AUTO 65.4 % (42.2-75.2); PLATELET COUNT,PLT 205 10^3/uL (150-450); RED BLOOD CELL COUNT 4.31 10^6/uL (4.6-6.2); WHITE BLOOD CELL COUNT,WBC 10.0 10^3/uL (5.0-10.0)
[2025-01-12 22:33] LABS: A/G RATIO 1.3; ALANINE AMINOTRANSFERASE,ALT 15 U/L (16-63); ASPARTATE AMNIOTRANSFERASE,AST 13 U/L (15-37); BILIRUBIN TOTAL 0.3 mg/dL (0.2-1.0); BLOOD UREA NITROGEN,BUN 15 mg/dL (7-18); CARBON DIOXIDE,CO2 30 mmol/L (21-32); CHLORIDE,CL 104 mmol/L (98-107); CREATININE 1.11 mg/dL (0.70-1.30); EST CRCL DRUG DOSING (CG) 114.42 mL/min; GLUCOSE RANDOM 110 mg/dL (70-99); POTASSIUM,K 3.6 mmol/L (3.5-5.1); PROTEIN TOTAL,TP 6.8 g/dL (6.4-8.2); SODIUM,NA 142 mmol/L (136-145)
[2025-01-12 22:36] LABS: ESTIMATED GFR 93 mL/min (>=60)
[2025-01-12 22:47] LABS: SEDIMENTATION RATE MANUAL 2 mm/hr (0-15)
[2025-01-12] MEDS: Take Home: Acetaminophen/HYDROcodone 325-5 MG, 5 Tab Pack PO ONE (22:56)
[2025-01-12] MEDS: Take Home: Cephalexin 500 MG Cap, 6 Cap Pack PO ONE (22:56)
[2025-01-12 23:10] VITALS: BP 127/85; PULSE 67
== END 2025-01-12 23:00 | disposition home or self-care (01) ==
LOC: DL.ED 21:35
DX: L03.116 Cellulitis of left lower limb (principal)
CPT/HCPCS: 36415; 73620-LT; 80053; 84550; 85025; 85651; 86140; 99283; A9270-GY